=== PATIENT | male | born 1980 | race Two or more races ===

== ENCOUNTER 2017-10-28 12:37 | Emergency (ER) | payer MEDICAID, OTHER ==
[~2017-10-28] VITALS: Ht 175.3 cm; Wt 81.6 kg
[2017-10-28 13:16] VITALS: BP 143/89
== END 2017-10-28 13:50 | disposition home or self-care (01) ==
LOC: ER 12:37
DX: S63.502A Unspecified sprain of left wrist, initial encounter (principal); W18.39XA Other fall on same level, initial encounter; Y93.89 Activity, other specified; Y92.89 Other specified places as the place of occurrence of the external cause; Y99.8 Other external cause status
CPT/HCPCS: 73110